=== PATIENT | male | born 1955 | race Caucasian/White ===

== ENCOUNTER 2019-01-24 15:57 | Emergency (ER) | payer MEDICARE, SELFPAY ==
[2019-01-24 15:58] VITALS: BP 141/91; PULSE 127; RESP 16; TEMP 35.9; O2SAT 95; BMI 25.6
--- NOTE | 2019-01-24 16:46 | CT_ITS ---
STUDY: CT ABDOMEN AND PELVIS WITH CONTRAST REASON FOR EXAM: Male, 63 years old. Right lower quadrant pain. RADIATION DOSAGE (If Supplied By Facility): CTDIvol = ( 13.34 ) mGy, DLP = ( 1323.56 ) mGycm TECHNIQUE: Transaxial images were obtained from the dome of the diaphragm to the symphysis pubis without oral contrast. 100 IV Isovue 300 was administered. Sagittal and coronal images were reconstructed. Individualized dose optimization techniques were used for this CT. COMPARISON: None. FINDINGS: There is evidence of prior right pneumonectomy. There are emphysematous changes of the visualized left lung. The visualized portions of the heart are within normal limits. There is mild intrahepatic ductal dilatation. There are surgical clips in the gallbladder fossa consistent with a prior cholecystectomy. There are postsurgical changes within the left upper quadrant of the abdomen associated with splenules. 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 Normal pancreas. Normal bilateral adrenal glands. There is a 1.4 cm high attenuation rounded focus arising from the right kidney. There are bilateral renal cysts present. There is a 0.9 mm slightly high in attenuation rounded focus arising from the left kidney. Normal left kidney. There is a small to moderate size hiatal hernia. Normal small intestine. There are scattered diverticula arising from the colon. The appendix is visualized and appears normal. There is circumferential wall thickening of the rectum which is incompletely distended. There is diffuse atherosclerotic calcification of the abdominal aorta, without a demonstrated aneurysm. Normal inferior vena cava. Normal retroperitoneum. There is mild bladder wall thickening. Normal abdominal wall. There are diffuse degenerative changes of the visualized lumbar spine. CT/Abdomen/Pelvis W IV Cont ONLY IMPRESSION: Circumferential wall thickening of the rectum which may be secondary to its incompletely distended state however cannot exclude underlying proctitis. Mild bladder wall thickening may reflect a history of cystitis. Indeterminant slightly high in attenuation foci arising from the kidneys may reflect underlying proteinaceous cysts however difficult to exclude an underlying neoplastic process, recommend MRI with contrast for further evaluation. Atherosclerosis. Colonic diverticulosis. Mild intrahepatic ductal dilatation. Electronically Signed: Ava Crespo MD at 18:05 EDT Tel , Service support ,
--- NOTE | 2019-01-24 16:53 | ED.DCSUM_ITS ---
History of Present Illness Chief Complaint: Abd Pain Informant: Patient Onset: Today Context: Sudden Onset Timing: Intermittent Current Severity: Moderate Maximum Severity: Severe Narrative: Patient is a 63-year-old male from [place] who was recently was diagnosed with renal mass and possible bladder cancer in [place] is presenting with sudden onset of right lower quadrant pain. Patient states he was at lunch when he went to stand up and he suddenly had very sharp pain in his right lower quadrant/groin area. The pain is into his groin. It is worse with movement. Patient initially denies any associated testicular pain. He states he charted having similar pain a week and a half ago which is when he went to the emergency room in [place] and was diagnosed with the masses. He did follow-up with urology was told he likely has a hernia and was referred to general surgery. He has not seen general surgery yet. Patient comments that he was given a new prescription for when he thinks his Vicodin when he saw his urologist but did not get it filled and left it in [place]. Past Medical History - Allergies and Home Meds Allergies/Adverse Reactions: Allergies No Known Allergies Allergy (Verified 01/24/19 16:01) Primary Care Physician: Rao Blood,Out of [Primary Care Provider] - Surgical History: - - Right total pneumonectomy, splenectomy, cholecystectomy Review of Systems All systems negative except as indicated Gastrointestinal: Reports: Abdominal pain - RLQ/Groin Genitourinary: Denies: Dysuria, Hematuria, Frequency Physical Exam Vital Signs/Narrative: Vital Signs Temp Pulse Resp BP Pulse Ox 01/24/19 15:58 96.7 F L 127 H 16 141/91 H 95 Inital Vital Signs reviewed: Yes General: Well nourished, Well developed, No Acute Distress Head: Normocephalic, Atraumatic Eyes: Perrl, EOMI ENT: Moist mucous membranes, No rhinorrhea Neck: Supple, Nontender Cardiovascular: Regular rate, Regular rhythm, No murmurs Respiratory: No distress, Chest nontender, - - Breath sounds on the right side Abdomen: Soft, Nondistended, Normal bowel sounds, - - Right groin tenderness to palpation, no palpable mass appreciated. Negative for: Pulsatile mass, Ventral hernia, Inguinal hernia : - - Normal testicular lie, normal external exam, normal cremasteric reflex bilaterally, tenderness palpation of the right posterior testicle, no mass or hernia appreciated Back: Nontender, Normal Inspection Extremities: Nontender, No edema Skin: Normal color, No rash Neurological: Alert, Oriented x3, Cranial nerves II-XII grossly intact, Normal Strength, Normal Sensation Psychological: Normal affect, Normal Mood Diagnostic/Tx/Re-eval Diagnostic Data Abdomen/Pelvis CT 01/24/19 16:46 IMPRESSION: Circumferential wall thickening of the rectum which may be secondary to its incompletely distended state however cannot exclude underlying proctitis. Mild bladder wall thickening may reflect a history of cystitis. Indeterminant slightly high in attenuation foci arising from the kidneys may reflect underlying proteinaceous cysts however difficult to exclude an underlying neoplastic process, recommend MRI with contrast for further evaluation. Atherosclerosis. Colonic diverticulosis. Mild intrahepatic ductal dilatation. Electronically Signed: Ava Crespo MD at 18:05 EDT Tel , Service support , Testicular Ultrasound 01/24/19 19:41 IMPRESSION: Bilateral epididymal cysts. Right inguinal hernia. Minimally complex right hydrocele. Small left hydrocele. Electronically Signed: Ava Crespo MD at 20:41 EDT Tel , Service support , Laboratory Results - last 24 hr 01/24/19 01/24/19 01/24/19 16:50 16:50 16:50 WBC 14.9 H RBC 5.25 Hgb 14.8 Hct 45.7 MCV 87.0 MCH 28.2 MCHC 32.4 RDW Std Deviation 45.6 H RDW Coeff of Ermias 14.2 Plt Count 338 MPV 10.7 Immature Gran % (Auto) 0.300 Neut % (Auto) 69.3 Lymph % (Auto) 20.7 Phillips % (Auto) 8.8 Eos % (Auto) 0.4 Baso % (Auto) 0.5 Absolute Neuts (auto) 10.3 H Absolute Lymphs (auto) 3.07 Nucleated RBC % 0 Sodium 138 Potassium 3.9 Chloride 105 Carbon Dioxide 27.0 Anion Gap 6 BUN 20 H Creatinine 1.44 H Estim Creat Clear Calc 64.39 Est GFR (MDRD) Af Amer 64 Est GFR (MDRD) Non-Af 53 L BUN/Creatinine Ratio 13.9 Glucose 130 H Lactic Acid 1.6 Calcium 9.4 Total Bilirubin 0.40 AST 13 L ALT 20 Alkaline Phosphatase 113 Total Protein 7.7 Albumin 3.8 Globulin 3.9 Albumin/Globulin Ratio 1.0 Urine Color Urine Clarity Urine pH Ur Specific [place] Urine Protein Urine Glucose (UA) Urine Ketones Urine Occult Blood Urine Nitrite Urine Bilirubin Urine Urobilinogen Ur Leukocyte Esterase Urine RBC Urine WBC Ur Squamous Epith Cells Urine Bacteria Hyaline Casts Urine Mucus 01/24/19 18:10 WBC RBC Hgb Hct MCV MCH MCHC RDW Std Deviation RDW Coeff of Ermias Plt Count MPV Immature Gran % (Auto) Neut % (Auto) Lymph % (Auto) Phillips % (Auto) Eos % (Auto) Baso % (Auto) Absolute Neuts (auto) Absolute Lymphs (auto) Nucleated RBC % Sodium Potassium Chloride Carbon Dioxide Anion Gap BUN Creatinine Estim Creat Clear Calc Est GFR (MDRD) Af Amer Est GFR (MDRD) Non-Af BUN/Creatinine Ratio Glucose Lactic Acid Calcium Total Bilirubin AST ALT Alkaline Phosphatase Total Protein Albumin Globulin Albumin/Globulin Ratio Urine Color Yellow Urine Clarity Clear Urine pH 6.5 Ur Specific [place] 1.010 Urine Protein 15 H Urine Glucose (UA) Normal Urine Ketones Negative Urine Occult Blood Negative Urine Nitrite Negative Urine Bilirubin Negative Urine Urobilinogen Normal Ur Leukocyte Esterase Negative Urine RBC 0 SEEN Urine WBC 0 SEEN Ur Squamous Epith Cells 0 SEEN Urine Bacteria 0 SEEN Hyaline Casts 0-5 SEEN Urine Mucus 0 SEEN - Medical Decision Making Patient is evaluated for sudden onset of right flank pain. Presentation is consistent with a hernia. 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 Patient is given morphine x2. He is also given IV fluids. On reevaluation he states he is feeling somewhat better. He is given a dose of oral [place]. Patient is counseled that the exact cause of his pain is not clear however do not think there is any emergencies occurring at this time. He is safe to continue to follow-up outpatient. In addition patient has been having this pain for over a week and a half intermittently. At time of discharge patient states that he did not tell me the full truth and that he is actually been having right sided pulling testicular pain. He states he was embarrassed to say something earlier. With this new information thorough testicular exam is performed. Ultrasound is obtained which does show a small inguinal hernia and small hydrocele but no torsion. Rectal exam is performed because of the abnormal CT findings. Patient does not have any tenderness I do not suspect prostatitis at this time. Patient will be treated empirically with Levaquin for epididymitis because of his amount of pain. Patient does have improvement of his pain at time of discharge. I suspect his pain is mostly from a hernia but cannot rule out the other causes. I think they are also indicated as he has a leukocytosis. Patient is counseled on signs and symptoms requiring return to the emergency room. Patient verbalizes agreement and understand this plan. Patient discharged home in stable and improved condition. ED Disposition - Plan for ED Patient: Disposition: Home or Assisted Living Diagnosis: Right inguinal pain Instructions: Epididymitis, HERNIA (Inguinal, Ventral, Umbilical), ABDOMINAL PAIN, Unkown Cause, (Male) Prescriptions: levoFLOXacin tablet [Levaquin tablet] 500 mg PO DAILY #10 tab Prescription Printed Hydrocodone/Acetaminophen [[place] 5-325 Tablet] 1 tab PO Q8H PRN PRN 3 Days #8 tab PRN Reason: Pain Prescription Printed Referrals: [facility],Out of [Primary Care Provider] - Additional Instructions: Return with worsening or change in the pain or if you develop fever, chills or new symptoms. Return if you start throwing up or cannot have a bowel movement/pass gas.
[2019-01-24 17:10] LABS: Absolute Lymphocyte Count 3.07 X10^3/uL (0.83-4.51); Absolute Neutrophil Count 10.3 X10^3/uL (2.0-7.7); Basophil# 0.07 X10^3/uL; Basophil% 0.5 % (0-1); Eosinophil# 0.06 X10^3/uL; Eosinophils% 0.4 % (0-5); Hematocrit 45.7 % (40-54); Hemoglobin 14.8 g/dL (13.0-16.5); Lymphocyte # 3.07 X10^3/ul (4.0); Lymphocyte % 20.7 % (19-41); Mean Corp Hgb Conc 32.4 g/dL (32-36); Mean Corpuscular Hgb 28.2 pg (27.0-32.0); Mean Platelet Vol. 10.7 fl (6.2-12.0); Monocyte% 8.8 % (0-10); NRBC Flagged by Analyzer 0 % (0-5); Neutrophil % 69.3 % (47-70); Platelet Count 338 K/mm3 (150-450); RBC Distribution Width CV 14.2 % (11.6-14.6); RBC Distribution Width SD 45.6 fl (35.1-43.9); Red Blood Count 5.25 M/mm3 (4.6-6.2); White Blood Count 14.9 K/mm3 (4.4-11.0)
[2019-01-24] MEDS: 0.9% Normal Saline 1,000 ML 1000 ML IV (17:17)
[2019-01-24] MEDS: Morphine 4 MG/ML Syringe IV ×2 (17:17→18:49)
[2019-01-24] MEDS: Ondansetron 4 MG/2 ML Vial IV (17:17)
[2019-01-24 17:21] LABS: AST(SGOT) 13 U/L (15-37); Alanine Aminotransfer ALT/SGPT 20 U/L (16-61); Albumin, Serum 3.8 g/dL (3.2-5.0); Alkaline Phosphatase 113 U/L (45-117); Anion Gap 6 (5-15); BUN 20 mg/dL (7-18); BUN/Creat Ratio 13.9 RATIO (10-20); Calcium,Total 9.4 mg/dL (8.5-10.1); Chloride 105 mmol/L (98-107); Creatinine, Serum 1.44 mg/dL (0.70-1.30); EST Glomerular Filtration Rate 53 mL/min (>60); Est Glom Filt Rate - Afr Amer 64 mL/min (>60); Estimated Creatinine Clearance 64.39 ml/min; Globulin 3.9 g/dL (2.2-4.2); Glucose 130 mg/dL (74-106); Potassium 3.9 mmol/L (3.5-5.1); Protein, Total 7.7 g/dL (6.4-8.2); Sodium Level 138 mmol/L (136-145)
[2019-01-24 17:23] LABS: Lactic Acid 1.6 mmol/L (0.4-2.0)
[2019-01-24 18:16] LABS: Bacteria 0 SEEN /hpf (None Seen); Mucous, Urine 0 SEEN /hpf (<or=2+); Red Blood Cells-Urine 0 SEEN /hpf (0-5); Squamous Epithelial Cells - UA 0 SEEN /hpf (0-5); White Blood Cells 0 SEEN /hpf (0-5)
[2019-01-24 18:25] LABS: Color, Urine Yellow (Yellow); Glucose, Dipstick Normal (Normal); Ketone-Dipstick Negative (Negative); Leukocyte Esterase-Dipstick Negative /ul (Negative); Nitrite-Dipstick Negative (Negative); Occult Blood-Urine Negative /ul (Negative); Protein-Dipstick 15 mg/dl (Negative); Urine Bilirubin Dipstick Negative (Negative); Urine Clarity Clear (Clear); Urine Urobilinogen Normal (Normal); Urine pH 6.5 (5.0 - 8.0)
[2019-01-24 18:52] LABS: Hyaline Cast 0-5 SEEN /lpf (0-5)
[2019-01-24 18:53] VITALS: BP 146/110; PULSE 110; RESP 16; O2SAT 93
[2019-01-24] MEDS: HYDROcodone Bitartrate/Apap 5/325 Tablet PO (19:40)
--- NOTE | 2019-01-24 19:41 | US_ITS ---
STUDY: SCROTUM ULTRASOUND REASON FOR EXAM: Male, 63 years old. Right testicular pain. TECHNIQUE: Ultrasound evaluation of the scrotum was performed with color Doppler and static rinaldi-scale imaging. COMPARISON: None. FINDINGS: RIGHT TESTICLE INTRATESTICULAR: There is a normal size of the right testicle. The right testicle measures 4.2 x 2.2 x 2.9 cm. There is a homogenous echotexture. There is normal arterial and normal venous vascularity. There is no demonstrated right testicular mass or cyst. EXTRATESTICULAR: The epididymis is normal in size. There is normal vascularity of the epididymis. There is a 4.6 x 5.9 x 4.3 cm epididymal cyst. There is a small minimally complex hydrocele. There is no demonstrated varicocele. Dedicated images of the right inguinal region were obtained with and without Valsalva maneuvers. There appears to be a right inguinal hernia. LEFT TESTICLE INTRATESTICULAR: There is a normal size of the left testicle. The left testicle measures 4.2 x 2.0 x 2.3 cm. There is a homogenous echotexture. There is normal arterial and normal venous vascularity. There is no demonstrated left testicular mass or cyst. EXTRATESTICULAR: The epididymis is normal in size. There is normal vascularity of the epididymis. There is a 4.9 x 4.3 x 4.1 cm epididymal cyst. There is a small hydrocele. There is no demonstrated varicocele. US/Testicular with Arterial Flow IMPRESSION: Bilateral epididymal cysts. Right inguinal hernia. Minimally complex right hydrocele. Small left hydrocele. Electronically Signed: Ava Crespo MD at 20:41 EDT Tel , Service support ,
[2019-01-24 21:07] VITALS: BP 142/88; PULSE 98; RESP 16; O2SAT 94
[2019-01-24 21:52] VITALS: BP 147/99; PULSE 98; RESP 18; O2SAT 96
== END 2019-01-24 21:53 | disposition home or self-care (01) ==
PROVIDERS: Emergency Provider Emergency Medicine
DX: R10.31 Right lower quadrant pain (principal); N50.3 Cyst of epididymis; K40.90 Unilateral inguinal hernia, without obstruction or gangrene, not specified as recurrent; N43.3 Hydrocele, unspecified; K57.30 Diverticulosis of large intestine without perforation or abscess without bleeding; Z90.81 Acquired absence of spleen; Z90.49 Acquired absence of other specified parts of digestive tract
CPT/HCPCS: 74177; 76870; 80053; 81001; 83605; 85025; 93976; 96361; 96374; 96375; 96376; 99283; J7030; Q9967; A4216; J2405